=== PATIENT | female | born 1955 | race Caucasian/White ===

== ENCOUNTER 2023-08-10 12:22 | Emergency (ER) | payer MEDICARE, SELFPAY ==
[2023-08-10 12:24] VITALS: BP 200/112
--- NOTE | 2023-08-10 13:16 | ED.GENMED ---
History of Present Illness
General
Chief Complaint: Headache
Time Seen by Provider: 08/10/23 13:16
Travel History
Have you had any contact with someone who has COVID-19?: No
Do you have any symptoms of coronavirus? Fever > 100 degrees, chills, cough, shortness of breath, sore throat, loss of taste or smell, muscle aches, or headache?: No
History of Present Illness
History of Present Illness:
67-year-old female with history of asthma, hypertension, and infrequent migraines presents to the emergency department for evaluation of a headache that began yesterday and worsened this morning. Feels consistent with prior migraine headaches.
Gradual in onset, associated with photophobia and nausea. Denies any diplopia, vomiting, extremity paresthesias, or dizziness. Has not taken any medication for symptoms today. Does not take any prophylactic medications
Past History
Past History
ED Past Medical History: Asthma, HTN, Hypothyroidism, Psychiatric (anxiety) and Other (Migraine HAs, gout)
ED Past Surgical History: Orthopedic (Foot surgery.) and Other (Perirectal abscess)
Social History
Tobacco: Non-smoker
Alcohol: None
Personal:
Living: with family
Employment: Employed
Family History
Family History: Hypertension and Other (mom-migraines)
Review of Systems
Review of Systems
Allergies reviewed?: Yes
All Other Systems: ROS reviewed and negative except as documented in HPI and ROS
Phy Exam
Physical Exam
Physical Exam:
GEN: Well appearing, NAD, WDWN
HEENT: Oral mucosa moist, no scleral icterus, no nasal congestion
Cardiac: Regular rate
Lung: No respiratory distress, no tachypnea
MSK: No gross deformity or injuries
Skin: Good color, no pallor or jaundice, no rashes
Neuro: AO x3; CN II-XII grossly intact. BUE strength 5/5 in all jamison, sensation intact and symmetric. BLE strength 5/5 in all jamison, sensation intact and symmetric
Psych: Calm, cooperative
Course
Orders/Labs/Results
Orders:
Orders
08/10/23 13:23
0.9% Sodium Chloride 1000 ml [Nss] 1,000 ml IV BOLUS
Ketorolac [Toradol] 15 mg IV NOW STA
Magnesium Sulfate 2 Gram/50 ml [Magnesium Sulfate] 2 gram in 50 ml IV NOW
Metoclopramide [Reglan] 10 mg IV NOW STA
Vital Signs
Initial and Last Documented VS:
Initial Vital Signs
Temp Pulse Resp BP Pulse Ox
97.9 F 72 16 200/112 97
08/10/23 12:24 08/10/23 12:24 08/10/23 12:24 08/10/23 12:24 08/10/23 12:24
Last Documented Vital Signs
Temp Pulse Resp BP Pulse Ox
97.9 F 73 18 179/102 97
08/10/23 12:24 08/10/23 15:00 08/10/23 15:00 08/10/23 15:00 08/10/23 15:00
MDM/Problems Addressed
MDM/Problems Addressed:
Patient's symptoms compatible with migraine headache, resolved with treatment in the emergency department, medication for neuroimaging
*Critical Care Note
Total Time (30-74mins, 75-104mins- exclusive of procedures): Not Applicable
ED Attending Note
-
Portions of this chart may have been created with voice recognition software.� Occasional wrong word or��sound alike� substitutions may have occurred due to the inherent limitations of voice recognition software.
Discharge Plan
Departure
Patient Disposition: Home (Routine Discharge)
Date of Disposition: 08/10/23
Time of Disposition: 15:16
Patient with high blood pressure during this ER visit?: Yes
Discharge Problem:
Migraine
Instructions: Migraines (DC)
Prescriptions:
No Action
levothyroxine 137 mcg tablet
137 mcg PO MOTUWETHFRSA
colchicine 0.6 mg tablet
0.6 mg PO DAILY PRN (Reason: gout)
duloxetine 60 mg capsule,delayed release(DR/EC)
60 mg PO DAILY
lisinopril 10 mg tablet
10 mg PO DAILY
Referrals:
Zafar Sánchez Jr., DO [Family Provider] -
Interventions
Interventions:
*Risk Screen - Suicide Last Done: 08/10/23 13:35
*General Assessment Last Done: 08/10/23 13:34
*Neglect/Abuse Screening Last Done: 08/10/23 13:35
ED- Fall Risk Assessment Last Done: 08/10/23 13:35
*ED COVID-19 Vaccine History Last Done: 08/10/23 12:24
*Nursing Disposition Last Done: 08/10/23 15:50
ED- Neurological Assessment Last Done: 08/10/23 13:35
Discharge Date and Time
Discharge Date/Time: 08/10/23 15:51
Print Language: INDONESIAN
[2023-08-10] MEDS: TORADOL 15 MG IV (14:02)
[2023-08-10] MEDS: MAGNESIUM SULFATE 50 IV (14:03)
[2023-08-10] MEDS: REGLAN 10 MG IV (14:03)
[2023-08-10] MEDS: NSS 1000 IV (14:32)
[2023-08-10 15:00] VITALS: BP 179/102
== END 2023-08-10 15:51 | disposition home or self-care (01) ==
LOC: EMR 12:22
PROVIDERS: EMERGENCY PHYSICIAN Emergency Medicine; FAMILY PHYSICIAN Family Medicine
DX: G43.909 Migraine, unspecified, not intractable, without status migrainosus (principal); I10 Essential (primary) hypertension; J45.909 Unspecified asthma, uncomplicated
CPT/HCPCS: 99284; 96374; 96375 ×2; 96361

== ENCOUNTER 2024-04-30 11:37 | Emergency (ER) | payer MEDICARE, SELFPAY ==
[2024-04-30 11:41] VITALS: BP 186/101
[2024-04-30 12:14] LABS: % Basophils 0.3 % (0-2); % Eosinophils 0.7 % (0-6); % Immature Granulocytes 0.4 % (0-0.5); % Lymphocytes 16.4 % (20.5-51.1); % Monocytes 7.5 % (1.7-9.3); % Neutrophils 74.7 % (42.2-75.2); Absolute Eosinophils 0.1 10^3/uL (0-0.7); Absolute Immature Granulocytes 0.1 10^3/uL (0-0.05); Absolute Lymphocytes 2.3 10^3/uL (1.2-3.4); Absolute Monocytes 1.1 10^3/uL (0.1-0.6); Absolute Neutrophils 10.4 10^3/uL (1.4-6.5); Hemoglobin 16.7 g/dL (12.0-16.0); Mean Corp Hgb Conc. 33.4 g/dL (33.0-37.0); Mean Corpuscular Hgb 32.6 pg (27.0-31.0); Mean Corpuscular Volume 97.5 fL (81.0-99.0); Mean Platelet Volume 9.7 fL (7.4-10.4); Nucleated Red Blood Cells % 0 %; Platelet Count 384 10^3/uL (130-400); Red Blood Cell Count 5.13 10^6/uL (4.20-5.40); Red Cell Dist. Width 14.2 % (11.5-14.5); White Blood Cell Count 13.9 10^3/uL (4.8-10.8)
[2024-04-30 12:32] LABS: ALT (SGPT) 19 U/L (0-35); AST (SGOT) 23 U/L (14-36); Albumin 4.6 g/dl (3.5-5.0); Alkaline Phosphatase 122 U/L (38-126); Blood Urea Nitrogen 9 mg/dl (7-17); Carbon Dioxide 29 mmol/L (22-30); Chloride 98 mmol/L (98-107); Glucose 116 mg/dl (70-99); Sodium 137 mmol/L (135-145); Total Bilirubin 0.8 mg/dl (0.2-1.3); Total Protein 7.4 g/dl (6.3-8.2); eGFR > 60.00
[2024-04-30 13:01] LABS: TSH Reflex To Free T4 0.26 uIU/ml (0.47-4.68)
[2024-04-30 13:35] LABS: Free T4 1.56 ng/dl (0.78-2.19)
[2024-04-30 17:30] LABS: Troponin I 0.016 ng/ml
--- NOTE | 2024-04-30 17:39 | ED.GENMED ---
History of Present Illness
General
Chief Complaint: Blood Pressure Problem
Source: patient
Time Seen by Provider: 04/30/24 16:24
History of Present Illness
History of Present Illness:
5-year-old female with past medical history of hypertension, asthma, diverticulitis, anxiety and depression presenting to the emergency department for evaluation of a multitude of symptoms. Patient states that she started experiencing a tingling
sensation on the left side of her neck and chest earlier today which is what ultimately prompted her to come to the ER stating 'I was concerned I was having a stroke'. Patient states that over the last few months she has been under a significant
amount of stress dealing with her 's medical issues as well as money issues, her car breaking down and her own medical conditions. Patient did go to her primary care provider last week and was told that she was likely having a panic attack.
Currently patient notes that due to her 's health conditions and money issues she feels depressed, constantly wants to lay in bed, crying most of the day and has a lack of motivation patient also notes that she drinks 4 to 5 glasses of wine
daily. She does note that when she felt the fluttering sensation earlier in the week or drinking some wine this sensation went away. Presently patient states she is asymptomatic overwhelmed breast. She denies any SI, HI, auditory or visual
hallucinations or any other substance use
Past History
Past History
ED Past Medical History: Asthma, HTN, Hypothyroidism, Psychiatric (anxiety) and Other (Migraine HAs, gout)
ED Past Surgical History: Orthopedic (Foot surgery.) and Other (Perirectal abscess)
Social History
Tobacco: Non-smoker
Alcohol: None
Drug: None
Personal:
Living: with family
Employment: Employed
Family History
Family History: Hypertension and Other (mom-migraines)
Review of Systems
Review of Systems
All Other Systems: ROS reviewed and negative except as documented in HPI and ROS
Phy Exam
Physical Exam
Physical Exam:
GENERAL: Alert , in no apparent distress but will intermittently get very upset and tearful during the exam
HEAD: NCAT
EYE: clear conjunctiva
NECK: Supple
ENT: o/p clr, mmm.
CARDIAC: Regular rate and rhythm .
LUNGS: Clear breath sounds bilaterally, no acute respiratory distress, no wheezes/rales/rhonchi
ABDOMEN: Soft, without focal tenderness, no r/g, no cvat
NEUROLOGICAL: Alert and oriented, no tremors
SKIN: Warm and dry, skin intact.
MUSCULOSKELETAL: well perfused.
PSYCH: Normal and appropriate interaction.
Scores
Heart Failure Risk
Heart Failure Risk Score: Not Applicable
Heart Score for Chest Pain Patients
STEMI patient?: Not applicable
Withdrawal Assessment of Alcohol
Withdrawal Assessment Completed?: Not applicable
Course
Orders/Labs/Results
Orders:
Orders
04/30/24 11:45
ECG [Electrocardiogram (*1)] Urgent
Reason for Study: Palpitations
EKG- Treatment ONCE
04/30/24 11:58
Complete Blood Count/With Diff Urgent
Comprehensive Metabolic Panel Urgent
Free T4 Urgent
TSH Reflex To Free T4 Urgent
04/30/24 16:42
Crisis Consult Urgent
Reason for Consult: depression
04/30/24 16:43
CT Head W/o Iv Contrast Urgent
Comment:
Reason For Exam: elevated BP, facial paresthesia
04/30/24 16:51
Troponin I Urgent
Abnormal Lab Results
04/30/24
11:58
WBC 13.9 H 10^3/uL
(4.8-10.8)
Hgb 16.7 H g/dL
(12.0-16.0)
Hct 50.0 H %
(37.0-47.0)
MCH 32.6 H pg
(27.0-31.0)
Abs Immat Gran (auto) 0.1 H 10^3/uL
(0-0.05)
Absolute Neuts (auto) 10.4 H 10^3/uL
(1.4-6.5)
Absolute Monos (auto) 1.1 H 10^3/uL
(0.1-0.6)
Lymphocytes % 16.4 L %
(20.5-51.1)
Glucose 116 H mg/dl
(70-99)
TSH (Reflex) 0.26 L uIU/ml
(0.47-4.68)
04/30/24 11:58
04/30/24 11:58
Vital Signs
Initial and Last Documented VS:
Initial Vital Signs
Temp Pulse Resp BP Pulse Ox
98.6 F 91 18 186/101 97
04/30/24 11:41 04/30/24 11:41 04/30/24 11:41 04/30/24 11:41 04/30/24 11:41
Last Documented Vital Signs
Temp Pulse Resp BP Pulse Ox
98.6 F 92 15 185/98 98
04/30/24 11:41 04/30/24 18:37 04/30/24 18:37 04/30/24 18:37 04/30/24 18:37
MDM/Problems Addressed
Differential Diagnosis Includes:
anxiety/depression, etoh abuse, HTN, less concern for CVA or acute emergent pathology
MDM/Problems Addressed:
68-year-old female presenting to the emergency department for evaluation of a paresthesia that she felt in the left side of her neck and chest earlier today with the symptoms only lasting a few seconds. Over the last few weeks and months she has
been noting an overall sensation of dread, lack of motivation, depression and significant amounts of stress due to multiple psychosocial issues. Based off her exam and history I am most suspicious patient's symptoms are related to anxiety and
depression as the cause of her symptoms. She is noted to have elevated blood pressure here which could be a potential cause for her symptoms as well however much less likely. Labs were initiated in triage and overall unremarkable other than a
unspecified leukocytosis. I did add on a troponin which was within normal limits and a CT of her head although I am less suspicious for any acute neurologic process. Will have our [facility] team evaluate the patient with plans for
outpatient management. I will refer patient back to primary care provider for continued evaluation and treatment assuming normal remaining lab tests and imaging.
Chronic conditions affecting care: Psychiatric illness
*Radiology
Radiology exam reviewed: radiology read reviewed
*Pulse Oximetry
Patient hypoxic: no
*EKG
Heart Rate: 87
Rate: normal
Rhythm: sinus and PAC's
Ischemia: no ischemia
*Commercial Glazier Interpretation
Rate: normal
Rhythm: sinus
*Critical Care Note
Total Time (30-74mins, 75-104mins- exclusive of procedures): Not Applicable
Patient Management
Social determinants of health affecting care: Living situation and Strong social support
Discussion with other providers: PCP
Escalation/DeEscalation of care consider admission/obs:
Patient CT and troponin are without any acute pathologies. I did notify patient's primary care provider about workup here and they will help with close follow-up. Patient blood pressure still elevated while here. Advised on dietary modifications.
Primary care provider will follow-up with this to ensure better BP management. Patient aware of return precautions to the ER.
ED Attending Note
-
Portions of this chart may have been created with voice recognition software.� Occasional wrong word or��sound alike� substitutions may have occurred due to the inherent limitations of voice recognition software.
Discharge Plan
Departure
Patient Disposition: Home (Routine Discharge)
Date of Disposition: 04/30/24
Time of Disposition: 18:32
Patient with high blood pressure during this ER visit?: Yes
Discharge Problem:
Hypertension, Anxiety
Instructions: High Blood Pressure (DC)
Prescriptions:
No Action
levothyroxine 137 mcg tablet
137 mcg PO MOTUWETHFRSA
colchicine 0.6 mg tablet
0.6 mg PO DAILY PRN (Reason: gout)
duloxetine 60 mg capsule,delayed release(DR/EC)
60 mg PO DAILY
lisinopril 10 mg tablet
10 mg PO DAILY
Referrals:
Zafar Sánchez Jr., DO [Family Provider] -
Interventions
Interventions:
*Risk Screen - Suicide Last Done: 04/30/24 11:41
*Neglect/Abuse Screening Last Done: 04/30/24 16:16
ED- Fall Risk Assessment Last Done: 04/30/24 16:16
*ED COVID-19 Vaccine History Last Done: 04/30/24 16:16
*Nursing Disposition Last Done: 04/30/24 18:37
ED- Cardiac Assessment Last Done: 04/30/24 16:16
ED- Neurological Assessment Last Done: 04/30/24 16:16
ED- Pulmonary Assessment Last Done: 04/30/24 16:16
Discharge Date and Time
Discharge Date/Time: 04/30/24 18:39
Print Language: RWANDAN
[2024-04-30 18:37] VITALS: BP 185/98
== END 2024-04-30 18:39 | disposition home or self-care (01) ==
LOC: EMR 11:37
PROVIDERS: Emergency Medicine; Physician Assistant Medical; EMERGENCY PHYSICIAN Emergency Medicine; FAMILY PHYSICIAN Family Medicine
DX: F41.9 Anxiety disorder, unspecified (principal); I10 Essential (primary) hypertension; J45.909 Unspecified asthma, uncomplicated; F32.A Depression, unspecified; Z73.3 Stress, not elsewhere classified; Z59.9 Problem related to housing and economic circumstances, unspecified; Z63.79 Other stressful life events affecting family and household
CPT/HCPCS: 99285; 70450; 80053; 84439; 84443; 84484; 85025; 93005

== ENCOUNTER 2024-05-12 08:00 | Inpatient (IN) | payer OTHER, SELFPAY ==
[2024-05-09 21:57] VITALS: BP 205/114
[2024-05-09 22:36] LABS: % Basophils 0.6 % (0-2); % Eosinophils 1.3 % (0-6); % Immature Granulocytes 0.5 % (0-0.5); % Lymphocytes 26.3 % (20.5-51.1); % Monocytes 7.9 % (1.7-9.3); % Neutrophils 63.4 % (42.2-75.2); Absolute Basophils 0.1 10^3/uL (0-0.2); Absolute Eosinophils 0.1 10^3/uL (0-0.7); Absolute Immature Granulocytes 0.1 10^3/uL (0-0.05); Absolute Lymphocytes 2.5 10^3/uL (1.2-3.4); Absolute Monocytes 0.8 10^3/uL (0.1-0.6); Hematocrit 49.6 % (37.0-47.0); Hemoglobin 16.7 g/dL (12.0-16.0); Mean Corp Hgb Conc. 33.7 g/dL (33.0-37.0); Mean Corpuscular Hgb 31.9 pg (27.0-31.0); Mean Corpuscular Volume 94.8 fL (81.0-99.0); Mean Platelet Volume 9.1 fL (7.4-10.4); Nucleated Red Blood Cells % 0 %; Platelet Count 433 10^3/uL (130-400); Red Blood Cell Count 5.23 10^6/uL (4.20-5.40); Red Cell Dist. Width 13.4 % (11.5-14.5); White Blood Cell Count 9.5 10^3/uL (4.8-10.8)
[2024-05-09 22:37] LABS: Urine Albumin Trace (Neg - Trace); Urine Bilirubin Negative (Negative); Urine Character Slightly Cloudy (Clear); Urine Color Yellow; Urine Glucose Negative (Negative); Urine Ketone Negative (Negative); Urine Leukocyte Negative (Negative); Urine Nitrite Negative (Negative); Urine Occult Blood Negative (Negative); Urine Urobilinogen Negative (Neg - 1+)
[2024-05-09 22:47] LABS: INR 0.95; PT 12.9 Sec (11.4-14.6)
[2024-05-09 22:55] LABS: ALT (SGPT) 24 U/L (0-35); AST (SGOT) 31 U/L (14-36); Albumin 4.6 g/dl (3.5-5.0); Alkaline Phosphatase 104 U/L (38-126); Blood Urea Nitrogen 9 mg/dl (7-17); Calcium 9.8 mg/dl (8.4-10.2); Carbon Dioxide 29 mmol/L (22-30); Chloride 99 mmol/L (98-107); Glucose 116 mg/dl (70-99); Sodium 137 mmol/L (135-145); Total Bilirubin 0.5 mg/dl (0.2-1.3); Total Protein 7.4 g/dl (6.3-8.2); eGFR > 60.00
[2024-05-09 23:00] LABS: Potassium 4.3 mmol/L (3.5-5.1); Troponin I < 0.012 ng/ml
[2024-05-09] MEDS: ZOFRAN ODT (ORALLY DISINTEGRATING) 4 MG PO (23:52)
[2024-05-10] VITALS (25 sets, daily range): BP systolic 133–204; BP diastolic 66–121; PULSE 96
--- NOTE | 2024-05-10 01:51 | ED.GENMED ---
History of Present Illness
General
Chief Complaint: Abdominal Symptoms
Source: patient, spouse, previous radiology exam (CT of the head April 30 showing no acute findings) and previous hospital records (ED visit April 30-patient complaining of a multitude of symptoms. Overnight hospitalization 2016 with
complaints of headache, left-sided numbness, MRI negative for acute stroke, significant hypertension noted, Trandate initiated at that time)
Exam Limitations: none
Time Seen by Provider: 05/10/24 00:37
Nursing documentation reviewed up to this point in time: agreed with
History of Present Illness
History of Present Illness:
This is a 68-year-old woman who has a longstanding history of poorly controlled hypertension, asthma, diverticulosis, anxiety/depression as well as longstanding history of migraine headaches occasionally complex migraine headaches who initially
presented to this ED April 30 with similar complaint of headache, intermittent nausea, dry heaves but also was complaining of some left-sided neck and chest discomfort, tingling sensation left side of her neck as well as significant ongoing
stress related to ongoing financial issues, worry regarding her 's medical issues. She admits to chronic poor sleep and ongoing worry over the past several weeks.
ED visit April 30 essentially unremarkable with unremarkable CT of the head, EKG, laboratory studies, troponin. Evaluated by [facility] and plan was for outpatient follow-up.
She admits to initially feeling improved but generalized right sided headache has returned perhaps 4 days ago accompanied with intermittent nausea, dry heaves. is concerned with patient's word searching, difficulty finding words which has
been ongoing over the past 4 days. This is a new finding, no history of similar episodes in the past. She does admit to intermittent lightheadedness but denies dizziness nor sense of the room spinning, no vision difficulty. She denies chest pain
or palpitations.
She has had no falls. She denies fever nor chills.
Patient states she has not been prescribed any new medications, has been compliant with lisinopril 10 mg daily. Trandate that was started 2015 at some point has been discontinued. The patient does not recall this medication.
Past History
Past History
ED Past Medical History: Asthma, HTN, Hypothyroidism, Psychiatric (anxiety) and Other (Migraine HAs, gout)
ED Past Surgical History: Orthopedic (Foot surgery.) and Other (Perirectal abscess)
Social History
Tobacco: Non-smoker
Alcohol: Occasional
Drug: None
Personal:
Living: with family
Employment: Not employed
Family History
Family History: Hypertension and Other (mom-migraines)
Phy Exam
Physical Exam
Physical Exam:
GENERAL: 68-year-old female appears somewhat older than stated age, awake and alert, mildly anxious, intermittent word searching is noted but intermittent and when patient allowed time to answer she is able to find appropriate words. There is no
slurring. Oriented x 3. is accompanying.
EYE: pupils equal and reactive. Extraocular muscles intact. Anicteric
NECK: Supple, nontender, no meningismus, no significant adenopathy. No bruit.
ENT: posterior pharynx is clear, oral mucosa is minimally dry. TM clear b/l, nares patent.
CARDIAC: Regular rate and rhythm. no murmur.
LUNGS: Clear breath sounds bilaterally, no acute respiratory distress, no wheezes/rales/rhonchi
ABDOMEN: Soft, nondistended, without focal tenderness, no r/g, no cvat. normoactive BS.
NEUROLOGICAL: Alert and oriented x3, motor strength is 5/5 bilaterally. Gross sensation is intact. DTR symmetric. Intermittent word searching is noted.
SKIN: Warm and dry, normal color, skin intact. No rash.
MUSCULOSKELETAL: No C/C/E. peripheral pulses are full and equal b/l. No palpable tenderness.
PSYCH: Mildly anxious. Cooperative.
NIH Stroke Score
Level of Consciousness: 0 - Alert
LOC questions: 0-Answers both correctly
LOC Commands: 0-Performs both correctly
Best Gaze: 0-Normal
Visual Azar: 0=Normal, no visual loss
Facial palsy: 0=Normal, symmetrical
Motor - Right Arm: 0=No drift 10 seconds
Motor - Left Arm: 0=No drift 10 seconds
Motor - Right Le-No drift 5 seconds
Motor - Left Le-No drift 5 seconds
Limb Ataxia: 0-Absent
Sensation: 0-Normal
Best Language: 1-Mild aphasia
Dysarthria: 0-Normal
Extinction and Inattention: 0-No abnormality
Total Score:: 1
Course
Orders/Labs/Results
Orders:
Orders
05/09/24 22:04
Electrocardiogram (*1) Urgent
Reason for Study: TIA/Stroke
05/09/24 22:05
EKG- Treatment ONCE
05/09/24 22:29
Complete Blood Count/With Diff Urgent
Comprehensive Metabolic Panel Urgent
Prothrombin Time Urgent
Troponin I Urgent
Urinalysis Reflex To Culture Urgent
Date Specimen was Collected: 05/09/24
Time Specimen was Collected: 22:25
05/09/24 23:47
Ondansetron Orally Disint [Zofran Odt (Orally Disintegrating)] 4 mg .ROUTE .STK-MED ONE
05/09/24 23:51
Ondansetron Orally Disint [Zofran Odt (Orally Disintegrating)] 4 mg PO NOW STA
05/10/24 00:00
CT Head & Neck Angio W/wo IV Urgent
Reason For Exam: Disequilibrium speech issues
05/10/24 01:36
Diphenhydramine [Benadryl] 25 mg IV NOW STA
Prochlorperazine [Compazine] 10 mg IV NOW STA
05/10/24 01:53
0.9% Sodium Chloride 500 ml [Nss] 500 ml IV BOLUS
05/10/24 03:18
Metoprolol [Lopressor] 5 mg IV NOW STA
Abnormal Lab Results
05/09/24
22:29
Hgb 16.7 H g/dL
(12.0-16.0)
Hct 49.6 H %
(37.0-47.0)
MCH 31.9 H pg
(27.0-31.0)
Plt Count 433 H 10^3/uL
(130-400)
Abs Immat Gran (auto) 0.1 H 10^3/uL
(0-0.05)
Absolute Monos (auto) 0.8 H 10^3/uL
(0.1-0.6)
Glucose 116 H mg/dl
(70-99)
05/09/24 22:29
05/09/24 22:29
Vital Signs
Initial and Last Documented VS:
Initial Vital Signs
Temp Pulse Resp BP Pulse Ox
98 F 81 18 205/114 99
05/09/24 21:57 05/09/24 21:57 05/09/24 21:57 05/09/24 21:57 05/09/24 21:57
Last Documented Vital Signs
Temp Pulse Resp BP Pulse Ox
97.9 F 94 16 182/104 98
05/10/24 00:30 05/10/24 02:38 05/10/24 01:30 05/10/24 02:38 05/10/24 02:15
MDM/Problems Addressed
Differential Diagnosis Includes:
Patient presents with persistent headache that began at least 2 weeks ago, improved but has returned over the past 4 to 7 days and more recently accompanied with word searching over the past 4 days.
She is noted to be significantly hypertensive and similar hypertension noted during ED visit April 30, 2024 and similarly in 2016.
Concern for complex migraine versus subacute stroke.
As symptoms have been ongoing for at least 4 or more days she is not a candidate for tPA.
NIH stroke scale of 1 for intermittent word searching.
Labs are unremarkable, normal CBC, unremarkable chemistries, negative troponin.
CT of the head shows an age indeterminate hypodensity within left basal ganglia.(Similarly noted on CT of the head April 30) CTA also notes age indeterminate occlusion of the right BRIDGE/STRUCTURE INSPECTION TEAM LEADER, left BRIDGE/STRUCTURE INSPECTION TEAM LEADER and possibly at the basilar tip.
Patient has received IV antiemetics previously for headache. Will trial IV Compazine and Benadryl for headache.
Will continue to monitor blood pressure and if headache improves without improvement in hypertension will initiate IV beta-kemi.
Due to concern for subacute stroke, malignant hypertension will admit to hospitalist service.
*Radiology
Radiology exam reviewed: radiology read reviewed
*Pulse Oximetry
Patient hypoxic: no
*EKG
Interpreted by ED Provider?: Yes
Interpretation: normal
Comparison EKG: no changes (Unchanged from previous April 30, 2024)
Rate: normal
Rhythm: sinus
Royal: normal axis
Interval: normal interval
QRS Pattern: poor R-wave progression
Ischemia: no ischemia
*Route Delivery Manager Interpretation
Rate: normal
Interpretation: normal
Rhythm: sinus
*Critical Care Note
Total Time (30-74mins, 75-104mins- exclusive of procedures): Not Applicable
Update Note
Update Note:
03:15
Patient notes mild to moderate improvement in headache after Compazine.
Blood pressure has improved somewhat to 177/93. Monitor continues to normal sinus rhythm in the 80s. Will give an IV dose of Lopressor now.
ED Attending Note
-
Portions of this chart may have been created with voice recognition software.� Occasional wrong word or��sound alike� substitutions may have occurred due to the inherent limitations of voice recognition software.
Discharge Plan
Departure
Patient Disposition: Admit
Date of Disposition: 05/10/24
Time of Disposition: 02:11
Admit to: Med/Surg
Admit to doctor: Teresa
Presentation/result/management discussed w/ accepting MD/DO: Hospitalist
Condition: Fair
Discharge Problem:
complex migraine headache vs stroke, Malignant hypertension
Prescriptions:
No Action
levothyroxine 137 mcg tablet
137 mcg PO MOTUWETHFRSA
colchicine 0.6 mg tablet
0.6 mg PO DAILY PRN (Reason: gout)
duloxetine 60 mg capsule,delayed release(DR/EC)
60 mg PO DAILY
lisinopril 10 mg tablet
10 mg PO DAILY
Referrals:
Zafar Sánchez Jr., DO [Family Provider] -
Interventions
Interventions:
*Risk Screen - Suicide Last Done: 05/10/24 00:39
*General Assessment Last Done: 05/09/24 21:57
*Neglect/Abuse Screening Last Done: 05/09/24 21:57
*ED COVID-19 Vaccine History Last Done: 05/10/24 00:39
TL-Iylhun-Ziwrrqcmma Assessment Last Done: 05/10/24 01:37
Discharge Date and Time
Print Language: GERMAN
[2024-05-10] MEDS: NSS 500 IV (01:54)
[2024-05-10] MEDS: BENADRYL 25 MG IV (01:56)
[2024-05-10] MEDS: COMPAZINE 10 MG IV (02:01)
[2024-05-10] MEDS: LOPRESSOR 5 MG IV (03:38)
--- NOTE | 2024-05-10 04:38 | EDRN ---
the pt stated to this FISCAL MANAGER that she 'quit drinking' alcohol approx 5 days ago and up until then she was drinking approx 3 glasses of wine daily.
[2024-05-10] MEDS: ATIVAN 1 MG IV ×2 (04:49→09:52)
--- NOTE | 2024-05-10 04:56 | HPS.HSE ---
Family Physician
-
Family Physician: Zafar Sánchez Jr.
Chief Complaint
-
Headache
History of Present Illness
This is a 68-year-old female with past medical history significant for anxiety, migraine headaches, gout and hypertension who presents to the emergency department with ongoing headache over the last 1 to 2 weeks.
Patient was seen about 2 weeks ago with her headache. Was treated in the ED at that time with improvement. CT of the head was nonacute. She now reports that her headache has returned over the last 5 days. She also appears to have been developing
word finding difficulties in that time. No other deficits according to family. At the time of my history with the patient that she had a very prominent word searching difficulty and basely stated that she could not complete the interview. She has
no fall. She denies double vision or blurry vision. She denies any neck stiffness. There is been no fevers or chills. There has been no vomiting. She denies any urinary symptoms.
In the ED she was hypertensive to 190/120, temp was 91.9, she was slightly tachycardic to the low 100. She has a benign erythroid cytosis to 16.7 white count was normal platelet was 4 and 33. Electrolytes BUN/creatinine were all within the normal
range. UA was unremarkable. She had a CT of the head which shows no acute intracranial process. CT angio of the head and neck shows age-indeterminate occlusions of the right and left DOUBLE CUTTER, no large vessel occlusion no stenosis of the
anterior/posterior circulation.
When asked about alcohol intake the patient tells me that she has been free from alcohol for about a couple months. We have history obtained by ED staff and nurses indicated that she stated she uses alcohol about 5 days ago. Patient denies disease
but has no corroborating history at this time.
Medical History
Past Medical History
Past Medical History: Reports Asthma, HTN, Hypothyroidism and Psychiatric (Anxiety)
Additional Past Medical History:
Gout
Migraine headache
Past Surgical History: Reports Orthopedic
Social History
Tobacco: Non-smoker
Alcohol: Occasional
Drug: None
Personal:
Living: With Family
Employment: Not Employed
Family History
Family History: Not pertinent
Allergies / Home Medications
Allergies reflects when Allergies were last updated in [facility].
Home Medications with original date entered in [facility]
Allergy/Medication List:
Allergies
Allergy/AdvReac Type Severity Reaction Status Date / Time
No Known Allergies Allergy Verified 05/10/24 00:33
Home Medications
colchicine 0.6 mg tablet 0.6 mg PO DAILY PRN gout 08/10/23
duloxetine 60 mg capsule,delayed release 60 mg PO DAILY 08/10/23
levothyroxine 137 mcg tablet 137 mcg PO MOTUWETHFRSA 08/10/23
lisinopril 10 mg tablet 10 mg PO DAILY 08/10/23
Review of Systems
-
History Source: Patient
Constitutional: Reports No Symptoms
EENT: Reports No Symptoms
Respiratory: Reports No Symptoms
Cardiac: Reports No Symptoms
Abdomen/GI: Reports No Symptoms
: Reports No Symptoms
Musculoskeletal: Reports No Symptoms
Skin: Reports No Symptoms
Neurological: Reports Headache and Other (word finding difficulty)
Endocrine: Reports No Symptoms
Hematologic/Lymphatic: Reports No Symptoms
Psych: Reports No Symptoms
Physical Exam
Vital Signs
Vital Signs
Temp Pulse Resp BP Pulse Ox
97.9 F 99 20 186/97 95
05/10/24 00:30 05/10/24 04:30 05/10/24 03:37 05/10/24 04:00 05/10/24 04:30
Physical Exam
General: Well Developed and No Apparent Distress
HEENT: NormoCephalic, Anicteric, Moist mucous membranes and Atraumatic
Respiratory: Clear
Cardiac: S1/S2 and Regular Rhythm
Breast: Deferred by me
GI: Soft, Non Tender, Non Distended and Normal Bowel Sounds
Rectal: Deferred by Provider
Genito-urinary: Deferred by me
Musculoskeletal: No Clubbing, No Cyanosis and No Edema
Skin: Warm
Neuro: Alert, Oriented (oriented x 3), No Motor Deficits, Cranial Nerves Intact, No Sensory Deficits, Tremors and Other (word finding difficulty)
Psych: Agitated
Laboratory Results
-
05/09/24 22:
05/09/24
Laboratory Results
PT 12.9 Sec (11.4-14.6) 05/09/24
INR 0.95 05/09/24
Total Bilirubin 0.5 mg/dl (0.2-1.3) 05/09/24
AST 31 U/L (14-36) 05/09/24
ALT 24 U/L (0-35) 05/09/24
Alkaline Phosphatase 104 U/L (38-126) 05/09/24:
Troponin I < 0.012 ng/ml 05/09/24
Data Reviewed
-
CT Scan: Report Reviewed by me
Lab Data: Labs Reviewed by me
Old Records: Reviewed
Impression/Plan
-
IMPRESSION:
68 y.o female with h/o htn, non-compliant with meds, gout, anxiety recently with uncontrolled headaches and word finding difficulties. CT is non-acute but shows age-indeterminate bilateral small vessel occlusions of the right and left DOUBLE CUTTER (patent
in 2016) without LVO. NIHSS = 1. She has developed some increased tremors and agitation and there is concern for etoh withdrawal.
PLAN:
1. Headache
- admit to telemetry for now
- bp control as below
- compazine prn
- tylenol prn
- toradol prn
- s/p iv fluids.
2. Uncontrolled htn -
- restart patient on lisinopril 10mg
- prn labetolol for now for SBP > 180
3. Word finding difficulty - no evidence of acute stroke but subacute vascular changes noted.
- neurochecks for now
- carotid u/s
- thiamine
4. ETOH
- etoh level pending
- will place on low risk msas withdrawal protocol
DVT PPX - lovenox sq
Code status - full code
[2024-05-10 05:16] LABS: Alcohol None Detected
[2024-05-10 06:38] LABS: INR 0.97; PT 13.1 Sec (11.4-14.6)
[2024-05-10 06:39] LABS: APTT 28.7 Sec (23.4-35.0)
[2024-05-10 06:42] LABS: Magnesium 1.9 mg/dl (1.6-2.3)
[2024-05-10 07:03] LABS: Amphetamines Negative (Negative); Barbiturates Negative (Negative); Benzodiazepines Positive (Negative); Buprenorphine Negative (Negative); Cocaine Negative (Negative); Marijuana Negative (Negative); Methadone Negative (Negative); Methamphetamines Negative (Negative); Opiates Negative (Negative); Phencyclidine Negative (Negative); Tricyclic Antidepressants Negative (Negative)
--- NOTE | 2024-05-10 07:38 | W.PN.HOSP.TC ---
Addendum entered and electronically signed by David Chen DO 05/10/24 14:10:
Updated on the phone.
He stated that his has had word finding difficulty for the past 3 days.
Will obtain brain MRI to rule out stroke. CTA head and neck results noted.
Original Note:
Today's Communication/Plan
-
Continue current care
Assessment / Plan
Assessment / Plan
Gen-awake but not alert
HEENT-NC, AT, anicteric, clear oral mm
Neck-supple
CV-reg, no M, +S1/S2
Lungs-clear B/L
Abd-soft, NT, ND
Ext-no edema
Musculoskeletal-no cyanosis, clubbing
Skin-warm and dry
Neuro-grossly non-focal
Psych-calm, cooperative
Hypertensive emergency -presentation with headache and word searching difficulty. Etiology of hypertensive emergency possibly due to alcohol withdrawal syndrome, severe headache, etc. Unclear compliance with blood pressure medication. Blood
pressure slowly improving since admission. Anticipate will need at least 2-3 blood pressure medications long-term.
Alcohol withdrawal syndrome -reportedly stopped drinking for the new year, unknown amount of alcohol consumption prior to that. Continue alcohol withdrawal protocol.
Severe alcohol use disorder -recommend rehab on discharge.
Headache -with known history of migraines. Reportedly had word searching difficulty, stroke workup initiated with CTA of head and neck, report pending. No indication for carotid ultrasound.
Hypothyroidism -continue levothyroxine.
Anxiety/depression
Gout
Obesity due to excess calories
Full code
Anticipated Discharge: > 48 hours
Subjective/Interval History
-
Date of Service: May 10, 2024
Patient seen and examined. Appears restless, cannot concentrate. Asking to go use the bathroom. No complaints.
Objective Data
-
Labs:
Laboratory Results
05/09/24 05/10/24
22:29 05:47
WBC 9.5
Hgb 16.7 H
Hct 49.6 H
Plt Count 433 H
PT 12.9 13.1
INR 0.95 0.97
APTT 28.7
Sodium 137
Potassium 4.3
Chloride 99
Carbon Dioxide 29
BUN 9
Creatinine 0.6
Glucose 116 H
Calcium 9.8
Total Bilirubin 0.5
AST 31
ALT 24
Alkaline Phosphatase 104
Vital Signs:
Vital Signs
Temp Pulse Resp BP Pulse Ox
97.9 F 83 20 169/82 95
05/10/24 00:30 05/10/24 06:45 05/10/24 03:37 05/10/24 06:04 05/10/24 06:45
Review of Systems
-
History Source: Patient
All other systems: Reviewed and negative
[2024-05-10 07:56] LABS: Folate 7.1 ng/ml (2.76-20); Vitamin B12 223 pg/ml (239-931)
[2024-05-10 08:40] LABS: Erythrocyte Sed Rate 14 mm/hour (0-20)
[2024-05-10 09:06] LABS: Fentanyl, Urine Negative (Negative)
[2024-05-10] MEDS: CYMBALTA DELAYED RELEASE 60 MG PO (09:55)
[2024-05-10] MEDS: FOLVITE 1 MG PO (09:55)
[2024-05-10] MEDS: ZESTRIL 10 MG PO (09:55)
[2024-05-10] MEDS: THIAMINE INJECTION 200 MG IV ×2 (09:55→20:47)
[2024-05-10] MEDS: SYNTHROID 137 MCG PO (10:00)
--- NOTE | 2024-05-10 11:47 | CM ---
Addendum entered by Rosalind Cole 05/10/24 11:59:
PCP: Dr Sánchez
Pharmacy: [facility]
Plan: home with possible home care needs.
Original Note:
Spoke with patient bedside.
Patient very sleepy and had difficulty answering questions.
Patient stated she stopped consuming alcohol a few months ago and denied needs for BCARES.
Patient gave permission for spouse to be called.
ABEBA Fairchild and SHARONDA completed.
MARIAA completed and copy emailed to [email or web address]
Patient lives with spouse in a 1 story ranch style home with 3 steps to enter.
Patient independent prior to admission without Assistive devices.
Patient has not had VN or been to s skilled rehab.
Per spouse patient recently stopped consuming alcohol, approx 2 weeks ago.
Spouse will transport home.
Spouse admists to difficulty with food and bills and [employer] offered to patient and resources printed up and left with patient.
pert spouse patient has new insurance with [employer], admissions updated.
[2024-05-10] MEDS: LOVENOX 40 MG SC (20:43)
[2024-05-11] VITALS (13 sets, daily range): BP systolic 119–174; BP diastolic 15–103; PULSE 91–96
[2024-05-11] MEDS: SYNTHROID 137 MCG PO (06:17)
[2024-05-11 06:32] LABS: Hematocrit 45.4 % (37.0-47.0); Hemoglobin 15.6 g/dL (12.0-16.0); Mean Corp Hgb Conc. 34.4 g/dL (33.0-37.0); Mean Corpuscular Hgb 32.9 pg (27.0-31.0); Mean Corpuscular Volume 95.8 fL (81.0-99.0); Mean Platelet Volume 9.3 fL (7.4-10.4); Platelet Count 386 10^3/uL (130-400); Red Blood Cell Count 4.74 10^6/uL (4.20-5.40); Red Cell Dist. Width 13.3 % (11.5-14.5); White Blood Cell Count 7.2 10^3/uL (4.8-10.8)
--- NOTE | 2024-05-11 07:55 | W.PN.HOSP.TC ---
Today's Communication/Plan
-
Aspirin, Lipitor
Neurology consult
PT/OT
Assessment / Plan
Assessment / Plan
Gen-awake but not alert
HEENT-NC, AT, anicteric, clear oral mm
Neck-supple
CV-reg, no M, +S1/S2
Lungs-clear B/L
Abd-soft, NT, ND
Ext-no edema
Musculoskeletal-no cyanosis, clubbing
Skin-warm and dry
Neuro-grossly non-focal
Psych-calm, cooperative
Hypertensive emergency -presentation subacute stroke, noted on brain MRI.
Continue lisinopril. Add Procardia XL.
Subacute stroke -MRI confirms 17 mm subacute nonhemorrhagic stroke in the left centrum semiovale. Old lacunar infarcts in both lentiform nuclei. Moderate cortical and cerebellar atrophy with moderate nonspecific white matter changes. Aspirin,
Lipitor started. Neurology consulted. PT/OT.
Alcohol withdrawal syndrome -reportedly stopped drinking for the new year, unknown amount of alcohol consumption prior to that. Continue alcohol withdrawal protocol.
Severe alcohol use disorder -recommend rehab on discharge.
Headache -with known history of migraines. Reportedly had word searching difficulty, stroke workup initiated with CTA of head and neck, report pending. No indication for carotid ultrasound.
Hypothyroidism -continue levothyroxine.
Anxiety/depression
Gout
Obesity due to excess calories
Full code
Anticipated Discharge: 24 - 48 hours
Subjective/Interval History
-
Date of Service: May 11, 2024
Patient seen and examined. Overall feeling better. No complaints.
Objective Data
-
Labs:
Laboratory Results
05/11/24
06:11
WBC 7.2
Hgb 15.6
Hct 45.4
Plt Count 386
Sodium Pending
Potassium Pending
Chloride Pending
Carbon Dioxide Pending
BUN Pending
Creatinine Pending
Glucose Pending
Calcium Pending
Vital Signs:
Vital Signs
Temp Pulse Resp BP Pulse Ox
98.1 F 81 17 174/97 92
05/11/24 06:16 05/11/24 06:15 05/11/24 06:15 05/11/24 06:14 05/11/24 06:15
Review of Systems
-
History Source: Patient
All other systems: Reviewed and negative
[2024-05-11 07:59] LABS: Hepatitis C Antibody Negative (Negative)
[2024-05-11] MEDS: ASPIR LOW (ENTERIC COATED) 81 MG PO (09:51)
[2024-05-11] MEDS: PROCARDIA XL (EXTENDED RELEASE) 30 MG PO (09:52)
[2024-05-11] MEDS: CYMBALTA DELAYED RELEASE 60 MG PO (09:52)
[2024-05-11] MEDS: FOLVITE 1 MG PO (09:53)
[2024-05-11] MEDS: THIAMINE INJECTION 200 MG IV ×2 (09:53→20:17)
[2024-05-11] MEDS: ZESTRIL 10 MG PO (09:54)
--- NOTE | 2024-05-11 12:31 | CON.NEURO ---
Consultation
Order
Date of Consultation: 05/11/24
Requesting Provider: David Chen DO
Reason for Consult: stroke
Neurology Consultation Note.
HPI: This is a 68-year-old RH woman who presented to [facility] on 05/09/2024 with facial numbness. According to the patient she has had intermittent left facial numbness over the last 2 weeks. She states that her symptoms has been
persistent since over the last several days prompting her to come for an evaluation. No reports of diplopia, fever, head trauma, motor or balance changes. Ms. Bruno endorses transient holocephalic nonpositional headache that had resolved
migraine cocktail.
ER VS: 205/114, 81 , afebrile.
EKG:NSR, QTc Int : 451 ms
PDMP:Lorazepam 0.5 Mg 30 tabs filled in on 03/24/2024, 10/20/2023
Labs: Glucose�116, platelets�433, normal sodium, creatinine, UA, vitamin B12�223, UA tox�positive for benzodiazepines
Brain MRI wo rohini-17 mm subacute nonhemorrhagic infarct in the left centrum semiovale, chronic BL lentiform nuclei; moderate cortical and cerebellar atrophy with moderate nonspecific white matter changes.
CTA head/neck- R VARITYPIST, high grade stenosis of the right P2
PMH: Nocturnal hypoxemia, HTN, DLP, hypothyroidism, gout, MDD, ROHINI, migraine, MAX, BMI 32, insomnia, Overactive bladder
PSH:Retinal detachment repair, BL cataract surgery, toe surgery
SH:; has no children, nonsmoker; retired routing clerk
FH: No family history of stroke
All:NKDA
ROS:Constitutional: Negative. Negative for chills, fever and unexpected weight change.
HENT: Negative for ear pain, hearing loss, tinnitus and trouble swallowing.
Eyes: Negative. Negative for photophobia, pain and visual disturbance.
Respiratory: Negative for cough, choking and shortness of breath.
Cardiovascular: Negative for chest pain, palpitations and leg swelling.
Gastrointestinal: Negative for abdominal pain and vomiting.
Endocrine: Negative. Negative for cold intolerance.
Musculoskeletal: Negative for back pain, gait problem, neck pain and neck stiffness.
Skin: Negative for rash.
Allergic/Immunologic: Negative. Negative for immunocompromised state.
Neurological: Positive for headaches,, left cheek numbness
Psychiatric/Behavioral: Negative for behavioral problems, confusion and hallucinations.
General: Obese, bilateral exophthalmos.
Cardio: Regular rate and rhythm without murmur. Extremities are without cyanosis or edema.
Neuro:
Mental Status: Alert, oriented to person, place, and date. Normal attention and recall. Good fund of knowledge. Follows complex requests across the midline. Comprehension, naming, and repetition intact. Immediate recall 3/3.
Cranial Nerves: . Pupils are equally round, surgical. EOMs full. Visual jamison full to confrontation. No ptosis. No nystagmus. V1-V3 intact to light touch and pinprick bilaterally, symmetric. Mild right facial weakness. Normal hearing AU.
The palate elevated well. SCMs and traps 5/5. Tongue midline. No dysarthria.
Motor: Normal bulk and tone. No pronator or arm drift. Strength 5/5 throughout. No clonus.
Sensory: Normal light touch
Coordination: No dysmetria or tremor.
Gait: deferred
Assessment and Plan:
I. Subacute left centrum semiovale stroke. Likely etiology�vascular disease.
II. Hypertensive emergency
III. Vitamin B12 deficiency
IV. 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
V. MAX, off CPAP
-Continue Telemetry monitoring.
-Aspiration precautions.
-TTE with bubble studies
-Start ASA 81 mg QD indefinitely.
-Plavix 75 mg QD for 21 days.
-Lipitor 40 mg QHS.
-Please check HbA1C, LDL.
-PT.
-Outpatient sleep medicine consult
-DVT prophylaxis.
I personally reviewed all radiology and labs along with past medical records pertinent to current medical problems. Total time spent in patient care is 65 minutes.
Thank you for allowing us to participate in the care of this patient. We will continue to follow. Please do not hesitate to contact us with any questions or concerns.
Subjective/Objective
Subjective Data
Date of Service: May 11, 2024
Objective Data
Vital Signs
Temp Pulse Resp BP Pulse Ox
36.7 C 81 17 160/101 92
05/11/24 06:16 05/11/24 06:15 05/11/24 06:15 05/11/24 09:54 05/11/24 06:15
Lab Results
05/11/24 06:11
PT 13.1 Sec (11.4-14.6) 05/10/24 05:47
INR 0.97 05/10/24 05:47
APTT 28.7 Sec (23.4-35.0) 05/10/24 05:47
Sodium 137 mmol/L (135-145) 05/09/24 22:29
Potassium 4.3 mmol/L (3.5-5.1) 05/09/24 22:29
BUN 9 mg/dl (7-17) 05/09/24 22:29
Glucose 116 mg/dl (70-99) H 05/09/24 22:29
Calcium 9.8 mg/dl (8.4-10.2) 05/09/24 22:29
Phosphorus 4.0 mg/dl (2.5-4.5) 05/10/24 05:46
Vitamin B12 223 pg/ml (239-931) L 05/10/24 05:46
Ur Buprenorphine Negative (Negative) 05/10/24 06:21
Patient Allergies
No Known Allergies Allergy (Verified 05/10/24 00:33)
Medications
-
Active Medications
Generic Name Dose Route Start Last Admin
Trade Name Freq PRN Reason Stop Dose Admin
Acetaminophen 650 mg 05/10/24 05:31
Acetaminophen 325 Mg Tablet PO 06/07/24 05:30
Q4HPRN PRN
mild pain/HUNT/temp> 100.4F
Aspirin 81 mg 05/11/24 08:00 05/11/24 09:51
Aspirin 81 Mg (Enteric Coated) Tablet PO 06/08/24 07:59 81 mg
DAILY BEVERLY Administration
Atorvastatin Calcium 40 mg 05/11/24 18:00
Atorvastatin (Lipitor) 40 Mg Tablet PO 06/08/24 17:59
QPM BEVERLY
Bisacodyl 10 mg 05/10/24 05:31
Bisacodyl 10 Mg Rectal Suppository RECTAL 06/07/24 05:30
[id number] PRN
constipation
Duloxetine HCl 60 mg 05/10/24 08:00 05/11/24 09:52
Duloxetine Delayed Release 60 Mg Capsule PO 06/07/24 07:59 60 mg
DAILY BEVERLY Administration
Enoxaparin Sodium 40 mg 05/10/24 18:00 05/10/24 20:43
Enoxaparin Sodium 40 Mg/0.4 Ml Syringe SC 06/07/24 17:59 40 mg
QPM BEVERLY Administration
Folic Acid 1 mg 05/10/24 08:00 05/11/24 09:53
Folic Acid 1 Mg Tablet PO 06/07/24 07:59 1 mg
DAILY BEVERLY Administration
Folic Acid 1 mg/ Sodium 50.2 mls @ 200.8 mls/hr 05/10/24 05:31
Chloride IV 06/07/24 05:30
DAILYPRN PRN
if NPO
Ketorolac Tromethamine 10 mg 05/10/24 05:31
Ketorolac 15 Mg/Ml Injection IV 05/15/24 05:30
Q6HPRN PRN
moderate pain
Labetalol HCl 10 mg 05/10/24 05:31
Labetalol Hcl 5 Mg/1 Ml (20 Mg/4 Ml) Injection IV 06/07/24 05:30
Q6HPRN PRN
for SBP > 180
Levothyroxine Sodium 137 mcg 05/10/24 06:00 05/11/24 06:17
Levothyroxine 137 Mcg Tablet PO 06/07/24 05:59 137 mcg
MoTuWeThFrSa@0600 BEVERLY Administration
Lisinopril 10 mg 05/10/24 08:00 05/11/24 09:54
Lisinopril 10 Mg Tablet PO 06/07/24 07:59 10 mg
DAILY BEVERLY Administration
Lorazepam 1 mg 05/10/24 05:31
Lorazepam 1 Mg Tablet PO 06/07/24 05:30
Q2HPRN PRN
MSAS 5-7
Lorazepam 1 mg 05/10/24 05:31 05/10/24 09:52
Lorazepam 2 Mg/Ml Vial IV 06/07/24 05:30 1 mg
Q1HPRN PRN Administration
MSAS 8-11
Lorazepam 2 mg 05/10/24 05:31
Lorazepam 2 Mg/Ml Vial IV 06/07/24 05:30
Q1HPRN PRN
MSAS > 11
Nifedipine 30 mg 05/11/24 08:00 05/11/24 09:52
Nifedipine 30 Mg Extended Release Tablet PO 06/08/24 07:59 30 mg
DAILY BEVERLY Administration
Ondansetron HCl 4 mg 05/10/24 05:31
Ondansetron 4 Mg/2 Ml Vial IV 06/07/24 05:30
Q6HPRN PRN
nausea and vomiting
Polyethylene Glycol 17 grams 05/10/24 05:31
Polyethylene Glycol Powder 17 Grams Packet PO 06/07/24 05:30
DAILYPRN PRN
constipation
Prochlorperazine Edisylate 10 mg 05/10/24 05:31
Prochlorperazine 10 Mg/2 Ml Vial IV 06/07/24 05:30
Q6HPRN PRN
headache
Senna/Docusate Sodium 1 tablet 05/10/24 05:31
Docusate W/Senna (Chelly-Colace) Tablet PO 06/07/24 05:30
BIDPRN PRN
constipation
Sodium Chloride 0 flush 05/10/24 06:00
Sodium Chloride 0.9% (Flush) Syringe IV 06/07/24 05:59
PER PROTOCOL BEVERLY
Sodium Chloride 0 ml 05/10/24 05:31
Sodium Chloride 0.9% (Preservative Free) 10 Ml Vial IV 06/07/24 05:30
PRN PRN
To dilute IV Ativan
Protocol
Thiamine HCl 200 mg 05/10/24 08:00 05/11/24 09:53
Thiamine (100 Mg/Ml) 2 Ml Vial IV 05/12/24 20:01 200 mg
Q12 BEVERLY Administration
Thiamine HCl 100 mg 05/13/24 08:00
Thiamine 100 Mg Tablet PO 06/10/24 07:59
BID BEVERLY
Home Medications
�Medication �Instructions �Recorded
colchicine 0.6 mg tablet 0.6 mg PO DAILYPRN PRN gout 08/10/23
duloxetine 60 mg capsule,delayed 60 mg PO DAILY 08/10/23
release
levothyroxine 137 mcg tablet 137 mcg PO MOTUWETHFRSA 08/10/23
lisinopril 10 mg tablet 10 mg PO DAILY 08/10/23
vitamin B complex 1 tab PO DAILY 05/11/24
Vital Signs and Labs
-
Vital Signs and Labs:
Vital Signs
Temp Pulse Resp BP Pulse Ox
36.6 C 113 25 137/77 93
05/11/24 15:19 05/11/24 15:16 05/11/24 15:16 05/11/24 15:09 05/11/24 07:30
Lab Results
05/11/24 06:11
PT 13.1 Sec (11.4-14.6) 05/10/24 05:47
INR 0.97 05/10/24 05:47
APTT 28.7 Sec (23.4-35.0) 05/10/24 05:47
Sodium 137 mmol/L (135-145) 05/09/24 22:29
Potassium 4.3 mmol/L (3.5-5.1) 05/09/24 22:29
BUN 9 mg/dl (7-17) 05/09/24 22:29
Glucose 116 mg/dl (70-99) H 05/09/24 22:29
Calcium 9.8 mg/dl (8.4-10.2) 05/09/24 22:29
Phosphorus 4.0 mg/dl (2.5-4.5) 05/10/24 05:46
Vitamin B12 223 pg/ml (239-931) L 05/10/24 05:46
Ur Buprenorphine Negative (Negative) 05/10/24 06:21
Medications
-
Medications:
Generic Name Dose Route Start Last Admin
Trade Name Freq PRN Reason Stop Dose Admin
Acetaminophen 650 mg 05/10/24 05:31
Acetaminophen 325 Mg Tablet PO 06/07/24 05:30
Q4HPRN PRN
mild pain/HUNT/temp> 100.4F
Aspirin 81 mg 05/11/24 08:00 05/11/24 09:51
Aspirin 81 Mg (Enteric Coated) Tablet PO 06/08/24 07:59 81 mg
DAILY BEVERLY Administration
Atorvastatin Calcium 40 mg 05/11/24 18:00
Atorvastatin (Lipitor) 40 Mg Tablet PO 06/08/24 17:59
QPM BEVERLY
Bisacodyl 10 mg 05/10/24 05:31
Bisacodyl 10 Mg Rectal Suppository RECTAL 06/07/24 05:30
[id number] PRN
constipation
Clopidogrel Bisulfate 75 mg 05/11/24 17:00
Clopidogrel 75 Mg Tablet PO 05/31/24 08:01
DAILY BEVERLY
Cyanocobalamin 1,000 mcg 05/11/24 17:00
Cyanocobalamin (1000 Mcg/Ml) 1 Ml Vial IM 06/08/24 16:59
DAILY BEVERLY
Diphenhydramine HCl 25 mg 05/11/24 16:14
Diphenhydramine 50 Mg/Ml 1 Ml Vial IV 06/08/24 16:13
Q6HPRN PRN
headache
Duloxetine HCl 60 mg 05/10/24 08:00 05/11/24 09:52
Duloxetine Delayed Release 60 Mg Capsule PO 06/07/24 07:59 60 mg
DAILY BEVERLY Administration
Enoxaparin Sodium 40 mg 05/10/24 18:00 05/10/24 20:43
Enoxaparin Sodium 40 Mg/0.4 Ml Syringe SC 06/07/24 17:59 40 mg
QPM BEVERLY Administration
Folic Acid 1 mg 05/10/24 08:00 05/11/24 09:53
Folic Acid 1 Mg Tablet PO 06/07/24 07:59 1 mg
DAILY BEVERLY Administration
Folic Acid 1 mg/ Sodium 50.2 mls @ 200.8 mls/hr 05/10/24 05:31
Chloride IV 06/07/24 05:30
DAILYPRN PRN
if NPO
Ketorolac Tromethamine 10 mg 05/10/24 05:31 05/11/24 15:08
Ketorolac 15 Mg/Ml Injection IV 05/15/24 05:30 10 mg
Q6HPRN PRN Administration
moderate pain
Labetalol HCl 10 mg 05/10/24 05:31
Labetalol Hcl 5 Mg/1 Ml (20 Mg/4 Ml) Injection IV 06/07/24 05:30
Q6HPRN PRN
for SBP > 180
Levothyroxine Sodium 137 mcg 05/10/24 06:00 05/11/24 06:17
Levothyroxine 137 Mcg Tablet PO 06/07/24 05:59 137 mcg
MoTuWeThFrSa@0600 BEVERLY Administration
Lisinopril 10 mg 05/10/24 08:00 05/11/24 09:54
Lisinopril 10 Mg Tablet PO 06/07/24 07:59 10 mg
DAILY BEVERLY Administration
Lorazepam 1 mg 05/10/24 05:31
Lorazepam 1 Mg Tablet PO 06/07/24 05:30
Q2HPRN PRN
MSAS 5-7
Lorazepam 1 mg 05/10/24 05:31 05/10/24 09:52
Lorazepam 2 Mg/Ml Vial IV 06/07/24 05:30 1 mg
Q1HPRN PRN Administration
MSAS 8-11
Lorazepam 2 mg 05/10/24 05:31
Lorazepam 2 Mg/Ml Vial IV 06/07/24 05:30
Q1HPRN PRN
MSAS > 11
Nifedipine 30 mg 05/11/24 08:00 05/11/24 09:52
Nifedipine 30 Mg Extended Release Tablet PO 06/08/24 07:59 30 mg
DAILY BEVERLY Administration
Ondansetron HCl 4 mg 05/10/24 05:31
Ondansetron 4 Mg/2 Ml Vial IV 06/07/24 05:30
Q6HPRN PRN
nausea and vomiting
Polyethylene Glycol 17 grams 05/10/24 05:31
Polyethylene Glycol Powder 17 Grams Packet PO 06/07/24 05:30
DAILYPRN PRN
constipation
Prochlorperazine Edisylate 10 mg 05/10/24 05:31 05/11/24 13:01
Prochlorperazine 10 Mg/2 Ml Vial IV 06/07/24 05:30 10 mg
Q6HPRN PRN Administration
headache
Senna/Docusate Sodium 1 tablet 05/10/24 05:31
Docusate W/Senna (Chelly-Colace) Tablet PO 06/07/24 05:30
BIDPRN PRN
constipation
Sodium Chloride 0 flush 05/10/24 06:00
Sodium Chloride 0.9% (Flush) Syringe IV 06/07/24 05:59
PER PROTOCOL BEVERLY
Sodium Chloride 0 ml 05/10/24 05:31
Sodium Chloride 0.9% (Preservative Free) 10 Ml Vial IV 06/07/24 05:30
PRN PRN
To dilute IV Ativan
Protocol
Thiamine HCl 200 mg 05/10/24 08:00 05/11/24 09:53
Thiamine (100 Mg/Ml) 2 Ml Vial IV 05/12/24 20:01 200 mg
Q12 BEVERLY Administration
Thiamine HCl 100 mg 05/13/24 08:00
Thiamine 100 Mg Tablet PO 06/10/24 07:59
BID BEVERLY
Home Medications
-
Home Medications
colchicine 0.6 mg tablet 0.6 mg PO DAILYPRN PRN gout 08/10/23
duloxetine 60 mg capsule,delayed release 60 mg PO DAILY 08/10/23
levothyroxine 137 mcg tablet 137 mcg PO MOTUWETHFRSA 08/10/23
lisinopril 10 mg tablet 10 mg PO DAILY 08/10/23
vitamin B complex 1 tab PO DAILY 05/11/24
[2024-05-11] MEDS: MOTRIN 200 MG PO (13:01)
[2024-05-11] MEDS: COMPAZINE 10 MG IV (13:01)
--- NOTE | 2024-05-11 13:10 | PTCARENOTE ---
Called to pt's room after she started to have a 9/10 headache with nausea. Upon assessing pt, she was having word finding difficulties similar to yesterday with sensitivity to light and sound. Notified neurology, motrin and compazine given per
order.
[2024-05-11] MEDS: TORADOL 10 MG IV (15:08)
[2024-05-11] MEDS: BENADRYL 25 MG IV (16:00)
[2024-05-11 17:40] LABS: Erythrocyte Sed Rate 13 mm/hour (0-20)
[2024-05-11] MEDS: LOVENOX 40 MG SC (18:34)
[2024-05-11] MEDS: PLAVIX 75 MG PO (18:34)
[2024-05-11] MEDS: LIPITOR 40 MG PO (18:34)
[2024-05-11] MEDS: CYANOCOBALAMIN 1000 MCG IM (18:50)
[2024-05-11 20:18] LABS: Blood Urea Nitrogen 10 mg/dl (7-17); Calcium 9.5 mg/dl (8.4-10.2); Carbon Dioxide 29 mmol/L (22-30); Chloride 96 mmol/L (98-107); Estimated Creatinine Clearance 107 ml/min; Glucose 101 mg/dl (70-99); HDL Cholesterol 57 mg/dl; LDL Cholesterol, Calculated 147 mg/dl; Sodium 132 mmol/L (135-145); Total Cholesterol 223 mg/dl (50-199); Triglyceride 97 mg/dl (10-149); Very Low Density Lipoprotein 19 mg/dl (0-30); eGFR > 60.00
[2024-05-12 00:49] VITALS: BP 164/86
[2024-05-12] MEDS: TORADOL 10 MG IV (01:12)
[2024-05-12 04:00] VITALS: BP 174/94
[2024-05-12] MEDS: SYNTHROID 137 MCG PO (05:40)
[2024-05-12 07:48] VITALS: BP 146/89
[2024-05-12 07:49] VITALS: BP 146/89
[2024-05-12] MEDS: PLAVIX 75 MG PO (09:44)
[2024-05-12] MEDS: FOLVITE 1 MG PO (09:44)
[2024-05-12] MEDS: PROCARDIA XL (EXTENDED RELEASE) 30 MG PO (09:44)
[2024-05-12] MEDS: ZESTRIL 10 MG PO (09:44)
[2024-05-12] MEDS: ASPIR LOW (ENTERIC COATED) 81 MG PO (09:44)
[2024-05-12] MEDS: CYANOCOBALAMIN 1000 MCG IM (09:45)
[2024-05-12] MEDS: CYMBALTA DELAYED RELEASE 60 MG PO (09:45)
[2024-05-12] MEDS: THIAMINE INJECTION 200 MG IV (09:45)
--- NOTE | 2024-05-12 12:06 | W.PN.NEURO.1 ---
Today's Communication / Plan
-
.
Subjective/Objective
Subjective Data
Date of Service: May 12, 2024
Neurology follow-up note
Ms. Bruno reports no complaints. No recurrent headaches, change in vision strength and sensation.
Blood pressure has improved.
-interatrial septum is intact with no evidence of shunting by color flow Doppler. No intracardiac mass or thrombus formation seen.
LDL 147
Brain MRI wo benjamin-17 mm subacute nonhemorrhagic infarct in the left centrum semiovale, chronic BL lentiform nuclei; moderate cortical and cerebellar atrophy with moderate nonspecific white matter changes.
CTA head/neck- R DANCE CRITIC, high grade stenosis of the right P2
PMH: Nocturnal hypoxemia, HTN, DLP, hypothyroidism, gout, MDD, BENJAMIN, migraine, MAX, BMI 32, insomnia, Overactive bladder
PSH:Retinal detachment repair, BL cataract surgery, toe surgery
SH:; has no children, nonsmoker; retired brokerage clerk
FH: No family history of stroke
All:NKDA
ROS:Constitutional: Negative. Negative for chills, fever and unexpected weight change.
HENT: Negative for ear pain, hearing loss, tinnitus and trouble swallowing.
Eyes: Negative. Negative for photophobia, pain and visual disturbance.
Respiratory: Negative for cough, choking and shortness of breath.
Cardiovascular: Negative for chest pain, palpitations and leg swelling.
Gastrointestinal: Negative for abdominal pain and vomiting.
Endocrine: Negative. Negative for cold intolerance.
Musculoskeletal: Negative for back pain, gait problem, neck pain and neck stiffness.
Skin: Negative for rash.
Allergic/Immunologic: Negative. Negative for immunocompromised state.
Neurological: Negative for headache
Psychiatric/Behavioral: Negative for behavioral problems, confusion and hallucinations.
General: Obese, bilateral exophthalmos.
Cardio: Regular rate and rhythm without murmur. Extremities are without cyanosis or edema.
Neuro:
Mental Status: Alert, oriented to person, place, and date. Normal attention and recall. Good fund of knowledge. Follows complex requests across the midline. Comprehension, naming, and repetition intact. Immediate recall 3/3.
Cranial Nerves: . Pupils are equally round, surgical. EOMs full. Visual jamison full to confrontation. No ptosis. No nystagmus. V1-V3 intact to light touch and pinprick bilaterally, symmetric. Mild right facial weakness. Normal hearing AU.
The palate elevated well. SCMs and traps 5/5. Tongue midline. No dysarthria.
Motor: Normal bulk and tone. No pronator or arm drift. Strength 5/5 throughout. No clonus.
Sensory: Normal light touch
Coordination: No dysmetria or tremor.
Gait: deferred
Assessment and Plan:
I. Subacute left centrum semiovale stroke. 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
II. DLP
III. Vitamin B12 deficiency
IV. 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
V. MAX, off CPAP
-Continue Telemetry monitoring.
-Continue ASA 81 mg QD indefinitely.
-Plavix 75 mg QD for 21 days.
-Lipitor 40 mg QHS.
-Outpatient sleep medicine consult
-Outpatient neurology follow-up
-DVT prophylaxis.
I personally reviewed all radiology and labs along with past medical records pertinent to current medical problems. Total time spent in patient care is 37 minutes.
Thank you for allowing us to participate in the care of this patient. Please do not hesitate to contact us with any questions or concerns.
Objective Data
Vital Signs
Temp Pulse Resp BP Pulse Ox
36.6 C 77 20 146/89 95
05/12/24 07:49 05/12/24 09:44 05/12/24 07:49 05/12/24 09:44 05/12/24 07:49
Lab Results
05/11/24 06:11
05/11/24 06:11
PT 13.1 Sec (11.4-14.6) 05/10/24 05:47
INR 0.97 05/10/24 05:47
APTT 28.7 Sec (23.4-35.0) 05/10/24 05:47
Sodium 132 mmol/L (135-145) L 05/11/24 06:11
Potassium 4.0 mmol/L (3.5-5.1) 05/11/24 06:11
BUN 10 mg/dl (7-17) 05/11/24 06:11
Glucose 101 mg/dl (70-99) H 05/11/24 06:11
Calcium 9.5 mg/dl (8.4-10.2) 05/11/24 06:11
Phosphorus 4.0 mg/dl (2.5-4.5) 05/10/24 05:46
LDL Cholesterol, Calc 147 mg/dl 05/11/24 06:11
Vitamin B12 223 pg/ml (239-931) L 05/10/24 05:46
Ur Buprenorphine Negative (Negative) 05/10/24 06:21
Patient Allergies
No Known Allergies Allergy (Verified 05/10/24 00:33)
--- NOTE | 2024-05-12 13:19 | W.PN.HOSP.TC ---
Today's Communication/Plan
-
BMP
Possible discharge
Assessment / Plan
Assessment / Plan
Gen-awake but not alert
HEENT-NC, AT, anicteric, clear oral mm
Neck-supple
CV-reg, no M, +S1/S2
Lungs-clear B/L
Abd-soft, NT, ND
Ext-no edema
Musculoskeletal-no cyanosis, clubbing
Skin-warm and dry
Neuro-grossly non-focal
Psych-calm, cooperative
Hypertensive emergency -presentation subacute stroke, noted on brain MRI. Blood pressure much improved, continue lisinopril, Procardia. Close outpatient follow-up with PCP. Monitor blood pressures at home.
Subacute stroke -MRI confirms 17 mm subacute nonhemorrhagic stroke in the left centrum semiovale. Old lacunar infarcts in both lentiform nuclei. Moderate cortical and cerebellar atrophy with moderate nonspecific white matter changes. Aspirin,
Plavix, Lipitor started. Neurology consulted. PT/OT. Outpatient follow-up.
Alcohol withdrawal syndrome -reportedly stopped drinking for the new year, unknown amount of alcohol consumption prior to that. Continue alcohol withdrawal protocol.
Severe alcohol use disorder -recommend rehab on discharge.
Vitamin B12 deficiency -continue repletion.
Headache -with known history of migraines. Reportedly had word searching difficulty, stroke workup initiated with CTA of head and neck, report pending. No indication for carotid ultrasound.
Hyponatremia -recheck BMP today.
Hypothyroidism -continue levothyroxine.
Anxiety/depression
Gout
Obesity due to excess calories
Full code
Dispo -anticipate discharge home today if sodium improved. Outpatient follow-up. Discussed with patient and nursing.
32 minutes spent in discharge process.
Anticipated Discharge: Today
Subjective/Interval History
-
Date of Service: May 12, 2024
Patient seen and examined. Overall feeling better. No complaints.
Objective Data
-
Labs:
Laboratory Results
05/12/24
12:41
Sodium Pending
Potassium Pending
Chloride Pending
Carbon Dioxide Pending
BUN Pending
Creatinine Pending
Glucose Pending
Calcium Pending
Vital Signs:
Vital Signs
Temp Pulse Resp BP Pulse Ox
97.7 F 68 21 146/89 95
05/12/24 12:53 05/12/24 12:00 05/12/24 12:00 05/12/24 09:44 05/12/24 07:49
I&O
05/11/24 05/12/24 05/13/24
06:59 06:59 06:59
Intake Total 480 / 480
Output Total 300 / 300
Balance 180 / 180
Review of Systems
-
History Source: Patient
All other systems: Reviewed and negative
--- NOTE | 2024-05-12 13:25 | W.DS.TRANS ---
DC Summary - Garnett Fixer
-
Discharge Instructions:
Discharge Diagnosis/Procedures Acute stroke, hypertensive emergency, vitamin
B12 deficiency
Diet Low Cholesterol,Low Fat
Activity As tolerated
Driving Restrictions As prior to admission
Bathing Restrictions None
Instructions:
Stand-Alone Forms:
Changes to Home Medications: No
Discharge Medications:
DC Medications w/original date entered in [facility]
colchicine 0.6 mg tablet 0.6 mg PO DAILYPRN PRN gout 08/10/23
duloxetine 60 mg capsule,delayed release 60 mg PO DAILY Mental Health 08/10/23
levothyroxine 137 mcg tablet 137 mcg PO MOTUWETHFRSA Thyroid 08/10/23
lisinopril 10 mg tablet 10 mg PO DAILY Blood Pressure 08/10/23
vitamin B complex 1 tab PO DAILY Supplement 05/11/24
aspirin 81 mg tablet,delayed release 81 mg PO DAILY #0 tabs 05/12/24
atorvastatin 40 mg tablet 40 mg PO QPM #30 tabs 05/12/24
clopidogrel 75 mg tablet 75 mg PO DAILY #19 tabs 05/12/24
cyanocobalamin (vitamin B-12) 1,000 mcg tablet 1,000 mcg PO DAILY #30 tabs 05/12/24
folic acid 1 mg tablet 1 mg PO DAILY #30 tabs 05/12/24
nifedipine 30 mg tablet,extended release 30 mg PO DAILY #30 tabs 05/12/24
thiamine HCl (vitamin B1) 100 mg tablet 100 mg PO BID #60 tabs 05/12/24
Home Medication Changes
Pending Results: No
[2024-05-12 14:13] LABS: Blood Urea Nitrogen 13 mg/dl (7-17); Calcium 9.7 mg/dl (8.4-10.2); Carbon Dioxide 28 mmol/L (22-30); Chloride 95 mmol/L (98-107); Estimated Creatinine Clearance 107 ml/min; Glucose 127 mg/dl (70-99); Potassium 4.1 mmol/L (3.5-5.1); Sodium 133 mmol/L (135-145); eGFR > 60.00
[2024-05-12 14:30] VITALS: BP 141/103
--- NOTE | 2024-05-12 15:43 | CM ---
CM reviewed chart and noted dc order
Pt left prior to CM meeting with her
Per chart review, no dc needs noted
Pt inpatient and left prior to IMM being issued
Discharge Disposition- home, no needs
[2024-05-13 09:11] LABS: Glycohemoglobin (HgbA1c) 5.2 % (4.0-5.6)
[2024-05-13 13:31] LABS: Lyme Antibody Screen, EIA Negative (Negative)
== END 2024-05-12 15:15 | disposition home or self-care (01) | DRG 65 ==
LOC: ED 08:00
PROVIDERS: Emergency Medicine; Nurse Practitioner Family; ADMITTING PHYSICIAN Internal Medicine; ATTENDING PHYSICIAN Hospitalist; CONSULT PHYSICIAN Psychiatry & Neurology Neurology; EMERGENCY PHYSICIAN Emergency Medicine; FAMILY PHYSICIAN Family Medicine
DX: I63.9 Cerebral infarction, unspecified (principal); E87.1 Hypo-osmolality and hyponatremia; I16.1 Hypertensive emergency; F10.239 Alcohol dependence with withdrawal, unspecified; I10 Essential (primary) hypertension; E53.8 Deficiency of other specified B group vitamins; E03.9 Hypothyroidism, unspecified; F32.A Depression, unspecified; F41.9 Anxiety disorder, unspecified; M10.9 Gout, unspecified; E66.09 Other obesity due to excess calories; Z68.32 Body mass index [BMI] 32.0-32.9, adult; Z79.82 Long term (current) use of aspirin; R29.701 NIHSS score 1
CPT/HCPCS: 70496; 70498; 70551; 80048; 80053; 80061; 80306; 80307; 81003; 82077; 82607; 82746; 83036; 83735; 84100; 84484; 85025; 85027; 85610; 85652; 85730; 86140; 86618; 86803; 93005; 93306; 96361; 96374; 96375; 99285; Q9967

== ENCOUNTER → 2024-07-27 14:55 | Outpatient (REF) | payer OTHER, SELFPAY | LOC: RAD 14:55 | PROVIDERS: ATTENDING PHYSICIAN Nurse Practitioner Adult Health | DX: M54.42 Lumbago with sciatica, left side (principal); M54.16 Radiculopathy, lumbar region | CPT/HCPCS: 72110 ==

== ENCOUNTER → 2024-08-13 08:33 | Outpatient (REF) | payer OTHER, SELFPAY | LOC: PAVMRI 08:33 | PROVIDERS: ATTENDING PHYSICIAN Pain Medicine Interventional Pain Medicine; PRIMARYCARE PHYSICIAN Family Medicine | DX: M54.16 Radiculopathy, lumbar region (principal) | CPT/HCPCS: 72148 ==

== ENCOUNTER 2025-03-29 06:55 | Outpatient (RCR) | payer OTHER, SELFPAY | END 2025-03-29 23:59 | disposition home or self-care (01) | LOC: RPT 06:55 | PROVIDERS: ATTENDING PHYSICIAN Family Medicine | DX: I69.354 Hemiplegia and hemiparesis following cerebral infarction affecting left non-dominant side (principal); Z73.6 Limitation of activities due to disability; R26.89 Other abnormalities of gait and mobility; I69.398 Other sequelae of cerebral infarction | CPT/HCPCS: 97110; 97112; 97163; 97530 ==

== ENCOUNTER 2025-04-15 08:24 | Outpatient (RCR) | payer OTHER, SELFPAY | END 2025-04-22 23:59 | disposition home or self-care (01) | LOC: RPT 08:24 | PROVIDERS: ATTENDING PHYSICIAN Family Medicine | DX: I69.354 Hemiplegia and hemiparesis following cerebral infarction affecting left non-dominant side (principal); Z73.6 Limitation of activities due to disability; R26.89 Other abnormalities of gait and mobility; I69.398 Other sequelae of cerebral infarction | CPT/HCPCS: 97110; 97112 ==